=== PATIENT | female | born 1995 | race Caucasian/White ===

== ENCOUNTER → 2022-07-25 23:59 | Outpatient (CLI) | payer BC, SELFPAY ==
[2022-07-25 20:20] LABS: HCG,Quantitative < 2 mIU/ml (0-5.42)
== END ==
PROVIDERS: PCP Nurse Practitioner; Visit Provider Nurse Practitioner
DX: N91.2 Amenorrhea, unspecified (principal); Z32.00 Encounter for pregnancy test, result unknown
CPT/HCPCS: 84702; 87086; 87088; 87186

== ENCOUNTER → 2022-08-23 19:26 | Outpatient (CLI) | payer BC, SELFPAY | PROVIDERS: PCP Nurse Practitioner; Visit Provider Nurse Practitioner | DX: R30.0 Dysuria (principal) | CPT/HCPCS: 87086 ==

== ENCOUNTER → 2022-10-23 12:40 | Outpatient (CLI) | payer BC, SELFPAY ==
--- NOTE | 2022-10-23 12:49 | US_ITS ---
FINAL REPORT CLINICAL HISTORY: possible , dysfunctional uterine bleeding FINDINGS: Transvaginal sonographic images of the pelvis were obtained. There is no gestational sac in the uterus. The ovaries are normal. The right ovary measures 2.7 x 2.5 x 2.1 cm. The left ovary measures 2.6 x 2.5 x 2.2 cm. The endometrium measures 12 mm. There are small amount of follicles in both ovaries. There is a small amount of free fluid, may be physiologic or reactive. IMPRESSION: No gestational sac in the uterus which may be due to failed , ectopic is not excluded. If indicated, follow-up may be helpful. Reviewed, Interpreted and Dictated by Johan Hannon III, MD Transcribed by Riddhi Hinojosa Authenticated and . [facility]
[2022-10-23 14:16] LABS: Basophils % 0.6 % (0.1-2.0); Eosinophils # 0.2 K/mm3 (0.0-0.4); Eosinophils % 1.8 % (0.1-12.0); Hematocrit 41.1 % (37.0-47.0); Hemoglobin 13.2 g/dL (12.2-16.2); Lymphocytes # 2.3 K/mm3 (0.7-4.5); Lymphocytes % 28.1 % (10-50); Mean Corpuscular Volume 77.9 fl (81-99); Mean Platelet Volume 7.6 fl (7.4-10.4); Monocytes # 0.3 K/mm3 (0.1-1.0); Neutrophils # 5.3 K/mm3 (1.8-7.8); Neutrophils % 65.5 % (37.0-80.0); Platelet Count 375 K/mm3 (142-424); Red Blood Count 5.28 M/mm3 (4.20-5.40); Red Cell Distribution Width 16.4 % (11.5-17.5); White Blood Count 8.1 K/mm3 (4.8-10.8)
[2022-10-23 15:37] LABS: Alanine Aminotransferase 33 U/L (12-78); Albumin Level 4.3 g/dl (3.5-5.0); Albumin/Globulin Ratio 1.6 (1.1-1.8); Alkaline Phosphatase 104 U/L (38-126); Anion Gap 17.6 mEq/L (5-15); Aspartate Amino Transferase 29 U/L (14-36); Bilirubin,Total 0.4 mg/dl (0.2-1.3); Blood Urea Nitrogen 13 mg/dl (7-17); Calcium 9.2 mg/dl (8.4-10.2); Carbon Dioxide 26 mmol/L (22.0-30.0); Chloride 100 mmol/L (98-107); Estimated Glomerular Filt Rate 85 ml/min (>60); GFR (African American) 103 ML/MIN (>60); Globulin 2.7 g/dL (1.3-3.2); Glucose 111 mg/dl (74-100); Potassium 4.6 mmoL/L (3.5-5.1); Sodium 139 mmol/L (136-145)
[2022-10-23 16:03] LABS: HCG,Quantitative < 2 mIU/ml (0-5.42)
== END ==
PROVIDERS: PCP Nurse Practitioner; Visit Provider Nurse Practitioner
DX: N93.8 Other specified abnormal uterine and vaginal bleeding (principal); N93.9 Abnormal uterine and vaginal bleeding, unspecified
CPT/HCPCS: 36415; 76817; 80053; 84702; 85025; 87086